=== PATIENT | male | born 1980 | race Caucasian/White ===

== ENCOUNTER 2017-03-17 07:20 | Day surgery (SDC) | payer BC ==
[~2017-03-17] VITALS: Ht 180.3 cm; Wt 90.8 kg
--- NOTE | ~2017-03-17 | OR ---
PATIENT'S NAME: EMA CUEVAS [facility] AGE: 36 Y [address] ROOM: [place] [id number] LOCATION: [facility] [place] ADMIT DATE: 03/17/2017 OR/Procedure Report DISCHARGE DATE: FAMILY PHYSICIAN: Marek Abrams MD ATTENDING PHYSICIAN: Robson Cruz V SURGEON: Robson Cruz MD PRODUCTION PLANNING MANAGER: HOUSTON Goetz DATE OF PROCEDURE: 03/17/2017 PREOPERATIVE DIAGNOSES: 1. Nasal obstruction secondary to septal deviation and bilateral inferior turbinate hypertrophy. 2. Sszafuvd-qj-pxedmp obstructive sleep apnea. POSTOPERATIVE DIAGNOSES: 1. Nasal obstruction secondary to septal deviation and bilateral inferior turbinate hypertrophy. 2. Ifugtsam-yt-mrydys obstructive sleep apnea. PROCEDURES PERFORMED: 1. Revision septoplasty. 2. Bilateral inferior turbinate outfracture with cauterization. 3. Uvulopalatoplasty/tonsillectomy. ESTIMATED BLOOD LOSS: Minimal. COMPLICATIONS: None. DESCRIPTION OF PROCEDURE: The patient was taken to the operating room and laid in the supine position with general endotracheal anesthesia. The table was rotated 90 degrees to the right. The head was placed in the upright position. Rashad-Lee mouth gag was inserted, opened. Tonsils visualized, noted to be +3/4, hypertrophied, redundant soft palate with a large edematous uvula. Left tonsil was grasped with curved Allis forceps, reflected inferomedially. Tonsil was dissected free from the tonsil bed without difficulty. Right tonsil was removed in a similar fashion as that on the left. Oblique palatal incisions were then performed, right and left respectively. The uvula was transected at its base using Bovie electrocautery, removing a small portion of the palate. Anterior and posterior tonsillar pillars were approximated using interrupted 2-0 plain gut suture. The nasopharyngeal and oropharyngeal mucosa was approximated using interrupted 2-0 plain gut sutures. The patient tolerated the procedure well. The tonsillar fossa soft palate was infiltrated with 0.5% Marcaine with epinephrine solution. Rashad-Lee mouth gag was removed. The head was placed in the upright position. The patient was prepped and draped in the usual PATIENT'S NAME: EMA CUEVAS [facility] AGE: 36 Y [address] ROOM: [place] [id number] LOCATION: [facility] [place] ADMIT DATE: 03/17/2017 OR/Procedure Report DISCHARGE DATE: FAMILY PHYSICIAN: Marek Abrams MD ATTENDING PHYSICIAN: Robson Cruz V sterile fashion. A speculum was placed within the nasal vestibule. The patient had okmootyn-bf-sxkepr pzsxx-nq-vzoo septal deviation superiorly. The nasal septum was infiltrated with 1% lidocaine with epinephrine solution. Left hemitransfixion incision was performed using a #15 blade. Mucoperichondrium was elevated. There was noted to be scarred portion of the quadrangular cartilage, that was noted to be previously removed. The scar tissue was . This was followed superiorly up to a ncvgtxvj-ux-mcijob yripp-sr-gdmf cartilaginous deviation. The mucoperichondrium was elevated off the cartilage. A large cartilaginous spur was removed using straight-biting forceps. Mucoperichondrial flap was placed back in that position. The septum was noted to be relatively midline. The hemitransfixion incision closed using interrupted 4-0 chromic suture. Mucoperichondrial flap closed using a 4-0 plain gut suture in a circular whipping stitch fashion. Inferior turbinates were outfractured, right and left respectively. Polypoid mucosa, redundant tissue on the posterior and inferior aspect of the inferior turbinate was desiccated using suction Bovie electrocautery. Nasal choana was noted be widely patent. Bactroban-coated nasal tampons were placed, right and left respectively. A drip pad was applied. The patient was aroused, extubated, and discharged from the operating room to the recovery room in satisfactory condition. ROBSON CRUZ MD TVC/modl /[id number] d: 03/17/17 1718 t: 03/24/17 0733, OPERATIVE SUMMARY
[~2017-03-17 07:20] MED LIST: BENEFIBER152 GM PO; FLONASE 50 MCG/16 GM NOSE; THERA-VITE W/ B1 TAB PO
--- NOTE | 2017-03-17 17:13 | NUR ---
Significant Event: From PACU at 1125. Ambulates with SBA. Nasal packing and drip pad intact. O2 at 30% per face tent. Tylenol with Codeine last at 1430 and Morphine 2mg last at 1635. Voids without diffiuclty. Tolerating PO fluids. Follow up:
--- NOTE | 2017-03-18 04:48 | NUR ---
Significant Event:pt is a/o x3. pt has o2 per face mask for humidification at 10L 30% humidity. pt has packing to niki nares. tylenol w/ codine liquid 25ml given x3 last @ 0334. pt is a sba. iv to l hand is sl. plan for packing removal and discharge home today. Follow up:pain control.
[2017-03-18] MEDS ORDERED: OCEAN NASAL) (A44 ML NOSE (08:24)
[2017-03-18] MEDS ORDERED: TYLENOL LI160 MG/5 M PO (08:27)
[2017-03-18] MEDS ORDERED: APAP/CODEINE EL15 ML PO (08:41)
--- NOTE | 2017-03-18 09:00 | NUR ---
D: Orders received for the patient to be discharged to home today. I: Dismissal instructions were prepared and reviewed with the patient and his significant other. The following information was discussed including Chuckie teaching sheets provided: Discharge instructions for nasal surgery, tonsillectomy/adenoidectomy-discharge instructions, step by step-using nasal spray, Tylenol with codeine elixir, and preventing DVT. Reviewed follow up appointment with Dr. Cruz and new prescriptions. R: The patient and his family both verbalized understanding of the dismissal education at the time of teaching with no further questions. P: The above information was shared with the primary nurse and the charge nurse that the dismissal education was completed. The patient is ready for discharge to the front door by nursing staff.
== END 2017-03-18 09:35 | disposition disaster alternative care site (69) ==
LOC: GSDC 07:20 → GMSU 07:20 → GSDC 09:00 → GMSU 11:30 → GSDC 03-18 09:35
PROC: 09SM0ZZ Reposition Nasal Septum, Open Approach (ICD-10-PCS; principal; 2017-03-17)
PROC: 09SL0ZZ Reposition Nasal Turbinate, Open Approach (ICD-10-PCS; 2017-03-17)
PROC: 0CBN0ZZ Excision of Uvula, Open Approach (ICD-10-PCS; 2017-03-17)
PROC: 0CBPXZZ Excision of Tonsils, External Approach (ICD-10-PCS; 2017-03-17)
DX: J34.2 Deviated nasal septum (principal); J35.1 Hypertrophy of tonsils; J34.89 Other specified disorders of nose and nasal sinuses; J34.3 Hypertrophy of nasal turbinates; G47.33 Obstructive sleep apnea (adult) (pediatric); Z98.890 Other specified postprocedural states; Z88.1 Allergy status to other antibiotic agents; Z79.899 Other long term (current) drug therapy
CPT/HCPCS: A9270; J1100; J2001; J2270; J2405; J3010; J7030; J7120